=== PATIENT | male | born 1950 | race Caucasian/White ===

== ENCOUNTER → 2019-09-08 | Outpatient (CLI) | payer MEDICARE, BC ==
[~2019-09-08] MED LIST: ALLO100T PO; APIX5TAB3 PO; APRE30TA2 PO; ASCO500C PO; ATOR40TA59 PO; DIGO125T17 PO; DOCU50CA9 PO; DOXA2TAB2 PO; EPLE25TA4 PO; FINA5TAB4 PO; FURO-68 PO; METO100T7 PO; OMEG-152 PO; POTA20TA4 PO; VITA1CAP PO; ZOLP5TAB5 PO
== END | disposition home or self-care (01) ==
LOC: LAB 14:05
PROVIDERS: ATTEND Registered Nurse
DX: Z01.818 Encounter for other preprocedural examination (principal); Z11.59 Encounter for screening for other viral diseases; K29.70 Gastritis, unspecified, without bleeding
CPT/HCPCS: C9803; U0003; 36415

== ENCOUNTER → 2019-09-12 | Day surgery (SDC) | payer MEDICARE, BC ==
[~2019-09-12] MED LIST changes: +IPRATRPIUM/ALBUTEROL 0.5/2.5MG 3 ML NEBU. NEB PRN; +IV RINGERS SOLUTION,LACTATED 1,000 ML IV SCH; +MIDAZOLAM HCL PF 2 MG/2 ML VIAL. IV ONE; +ONDANSETRON PF 4 MG/2 ML VIAL. IV PRN; +PROPOFOL 10,000 MCG/ML (20ML) VIAL IV ONE
[2019-09-12 10:19] VITALS: BP 117/75
--- NOTE | 2019-09-13 16:07 | PATHOLOGY ---
[facility] Accession Number: [id number] . 01 Material submitted: . stomach - GASTRIC BX . 01 Clinical history: . None provided . 02 Diagnosis: Gastric biopsies: - Mild chronic and focal acute gastritis with mucosal erosion and hemorrhage. - Gastric xanthelasma, focal. (JPM:[facility] 09/13/2019) [facility] 09/13/2019 0930 Local . 02 Comment: Sections of the gastric biopsy reveal multiple segments of gastric mucosa which show congestion and mild chronic inflammation. One of the biopsy segments shows intense acute inflammation with mucosal erosion and focal hemorrhage. There is another biopsy segment which shows infiltration of the lamina propria by foamy histiocytes consistent with gastric xanthelasma. A properly controlled immunoperoxidase stain for Helicobacter is negative for Helicobacter organisms. There is no evidence of malignancy. (JPM:[facility] 09/13/2019) . Special stain performed: Immunoperoxidase for Helicobacter . 02 Electronically signed: . Randall Carpenter MD, Pathologist NPI- [id number] . 01 Gross description: . The specimen is received in formalin, labeled "Leo Bailey, gastric biopsy". Received are five segments of pale yu soft tissue ranging in size from 0.2 to 0.4 cm in maximum dimensions. The specimen is submitted entirely in cassette A1. (CAA; 09/12/2019) QAC/QA 09/12/20191922 Local . 02 Pathologist provided ICD-10: K29.00, K25.9 . 02 CPT . 226810, B34008 Specimen Comment: A courtesy copy of this report has been sent to [phone], [phone] Specimen Comment: [id number] Specimen Comment: Report sent to / DR BEAL Specimen Comment: A duplicate report has been generated due to demographic updates. Performed at: 01 [facility] [address] [facility] [address], [place] [id number] MD Jaron Brownlee MD Phone: [phone] Performed at: 02 [facility] [address] [place], [place] [id number] MD Randall Carpenter MD Phone: [phone]
== END ==
LOC: SURG 08:02
PROVIDERS: ATTEND Emergency Medicine
DX: K29.50 Unspecified chronic gastritis without bleeding (principal); I48.91 Unspecified atrial fibrillation; I10 Essential (primary) hypertension; E78.5 Hyperlipidemia, unspecified; Z98.890 Other specified postprocedural states
CPT/HCPCS: 43239; J2704; J7120; 88305; 88342